=== PATIENT | male | born 1955 | race African-American/Black ===

== ENCOUNTER 2017-02-02 12:14 | Emergency (ER) | payer MEDICAID, OTHER ==
[~2017-02-02] VITALS: Ht 185.4 cm; Wt 102.1 kg
[2017-02-02 12:37] VITALS: BP 137/97
--- NOTE | 2017-02-02 12:48 | Emergency Room Report ---
History of Present Illness General Chief Complaint: Pain Source: Patient (Chelo Camargo) Present Illness HPI 61-year-old male presents to the emergency department complaining of approximately 2 weeks symptoms of right-sided nasal congestion, progressive onset right temporal headache with tenderness x2 days. Patient denies nausea vomiting patient does report intermittent blurry vision. Denies loss in vision, floaters, photophobia or denies eye pain. Patient reports history of sinusitis , HIV. Patient denies rhinorrhea, fevers, chills, neck pain or stiffness. Patient states that his viral load is undetectable he does not recall what his CD4 count is states that he has not been told he has aids his doctor. He denies trauma fall, in balance, dizziness. Denies CP, Palpitations, LOC, AMS, dizziness, Changes in Vision, Sensation, paresthesias, or a sudden severe headache. (Chelo Camargo) Allergies: Coded Allergies: No Known Allergies (Verified Allergy, Unknown, 11/26/07) Patient History Past Medical History: see triage record Past Surgical History: none Pertinent Family History: none Immunizations: UTD Reviewed Nursing Documentation: PMH: Agreed, PSxH: Agreed (Chelo Camargo) Nursing Documentation-PMH Past Medical History: No History, Except For Hx Cardiac Problems: No - HIV + Hx Seizures: Yes (Chelo Camargo) Review of Systems All Other Systems: negative except mentioned in HPI (Chelo Camargo) Physical Exam Vital Signs Date Time Temp Pulse Resp B/P (MAP) Pulse Ox O2 Delivery O2 Flow Rate FiO2 02/02/17 12:17 98.2 63 18 137/97 98 Room Air Sp02 EP Interpretation: reviewed, normal General Appearance: no apparent distress, alert, GCS 15, non-toxic Head: normocephalic, atraumatic Eyes: bilateral eye normal inspection, bilateral eye PERRL ENT: hearing grossly normal, normal pharynx, no angioedema, normal voice, TMs + canals normal, uvula midline, nasal congestion - right sided nasal congestion , and possible nasal polyp due to visualized boggy swelling. Neck: full range of motion, no meningismus, no bony tend, supple/symm/no masses Respiratory: chest non-tender, lungs clear, normal breath sounds, speaking full sentences Cardiovascular #1: regular rate, rhythm, normal capillary refill Musculoskeletal: back normal, gait/station normal, normal range of motion, tender - moderate right spiritism ttp, pulses are equal bilaterally in temporal area. Neurologic: alert, oriented x3, responsive, motor strength/tone normal, sensory intact, normal gait, speech normal, no pronator, other - negative whittington's, equal director of supply chain strength Psychiatric: judgement/insight normal, memory normal, mood/affect normal Skin: normal color, no rash - no rashes noted, no bruises, no erythema, warm/ dry, well hydrated Lymphatic: no adenopathy (Chelo Camargo) Medical Decision Making PA Attestation Dr. Sawyer is my supervising Physician whom patient management has been discussed with. (Chelo Camargo) Diagnostic Impression: Primary Impression: Ethmoid sinusitis Qualified Codes: J01.20 - Acute ethmoidal sinusitis, unspecified ER Course 61-year-old male presents to the emergency department complaining of approximately 2 weeks symptoms of right-sided nasal congestion, progressive onset right temporal headache with tenderness x2 days. Patient denies nausea vomiting patient does report intermittent blurry vision. Denies loss in vision, floaters, photophobia or denies eye pain. Patient reports history of sinusitis , HIV. Patient denies rhinorrhea, fevers, chills, neck pain or stiffness. Patient states that his viral load is undetectable he does not recall what his CD4 count is states that he has not been told he has aids his doctor. He denies trauma fall, in balance, dizziness. Denies CP, Palpitations, LOC, AMS, dizziness, Changes in Vision, Sensation, paresthesias, or a sudden severe headache. Ddx considered but are not limited to migraine, temporal arteritis, sinusitis, acute glaucoma, Vital signs: are WNL, pt. is afebrile H&PE are most consistent with migraine headache _VISUAL ACUITY: R: 20/70, L: 20/25, BOTH : 20/30 ORDERS: - CBC: WNL other than wbc's of 3.8 -ESR: 12 - WNL CT Head No Contrast: "No evidence of acute fracture, hemorrhage, or intracranial process, Evidence of right sided ethmoid sinus disease"-- Per: Official radiology report. ED INTERVENTIONS: -Benadryl IM -Tylenol PO -D/w pt. the results of imaging, and lab work, given CT shows ethmoid sinus disease, and ESR was WNL-- Temporal Arteritis is of low suspicion. Pt. is rx'd with ORAL ANTIBIOTICS Because symptoms have been greater than 10 days, Pt. is immunocompromised, and diagnosis is established with CT. DISCHARGE: At this time pt. is stable for d/c to home. Will provide printed patient care instructions, and any necessary prescriptions. Care plan and follow up instructions have been discussed with the patient prior to discharge. Labs Test 02/02/17 13:46 White Blood Count 3.8 K/UL (4.8-10.8) Red Blood Count 5.79 M/UL (4.70-6.10) Hemoglobin 16.3 G/DL (14.2-18.0) Hematocrit 51.8 % (42.0-52.0) Mean Corpuscular Volume 89 FL (80-99) Mean Corpuscular Hemoglobin 28.1 PG (27.0-31.0) Mean Corpuscular Hemoglobin Concent 31.4 G/DL (32.0-36.0) Red Cell Distribution Width 12.9 % (11.6-14.8) Platelet Count 207 K/UL (150-450) Mean Platelet Volume 7.9 FL (6.5-10.1) Neutrophils (%) (Auto) 54.9 % (45.0-75.0) Lymphocytes (%) (Auto) 30.3 % (20.0-45.0) Monocytes (%) (Auto) 11.6 % (1.0-10.0) Eosinophils (%) (Auto) 2.3 % (0.0-3.0) Basophils (%) (Auto) 0.9 % (0.0-2.0) Erythrocyte Sedimentation Rate 12 MM/HR (0-20) (Chelo Camargo P.A.) Last Vital Signs Date Time Temp Pulse Resp B/P (MAP) Pulse Ox O2 Delivery O2 Flow Rate FiO2 02/02/17 12:37 18 137/97 98 Room Air 02/02/17 12:17 98.2 63 (Chelo Camargo P.A.) Disposition: HOME, SELF-CARE Condition: Stable Scripts Cetirizine Hcl* (ZYRTEC*) 10 Mg Tablet 10 MG ORAL DAILY for 30 Days, #30 TAB 0 Refills Prov: Chelo Camargo 02/02/17 Amoxicillin/Potassium Clav 875-125* (AUGMENTIN 875-125 TABLET*) 1 Each Tablet 1 TAB ORAL TWICE A DAY for 10 Days, #20 TAB Prov: Chelo Camargo 02/02/17 Oxymetazoline Hcl* (AFRIN*) 15 Ml Mist 2 SPRAYS NASAL TWICE A DAY for 3 Days, #15 ML 0 Refills Prov: Chelo Camargo 02/02/17 Patient Instructions: Sinusitis, Adult Additional Instructions: Take medications as directed. Follow up with a [facility]EL[facility] via your Primary Care Physician within 48 HOURS ! Return sooner to ED if new symptoms occur, or current symptoms become worse. - Please note that this Emergency Department Report was dictated using [employer] Technologiescasting operator technology software, occasionally this can lead to erroneous entry secondary to interpretation by the dictation equipment. Chelo Camargo Feb 02, 2017 12:48 Jin Sawyer M.D. Feb 07, 2017 06:52
[2017-02-02] MEDS ORDERED: AFRIN15 ML NASAL (13:23)
[2017-02-02] MEDS ORDERED: PREDNISONE20 MG ORAL (13:23)
[2017-02-02 13:53] LABS: BASOPHILS % (AUTO) 0.9 % (0.0-2.0); EOSINOPHILS % (AUTO) 2.3 % (0.0-3.0); LYMPHOCYTES % (AUTO) 30.3 % (20.0-45.0); MEAN CORPUSCULAR HEMOGLOBIN 28.1 PG (27.0-31.0); MEAN CORPUSCULAR HGB CONC 31.4 G/DL (32.0-36.0); MEAN CORPUSCULAR VOLUME 89 FL (80-99); MEAN PLATELET VOLUME 7.9 FL (6.5-10.1); MONOCYTES % (AUTO) 11.6 % (1.0-10.0); NEUTROPHILS % (AUTO) 54.9 % (45.0-75.0); PLATELET COUNT 207 K/UL (150-450); RED BLOOD COUNT 5.79 M/UL (4.70-6.10); RED CELL DISTRIBUTION WIDTH 12.9 % (11.6-14.8); WHITE BLOOD COUNT 3.8 K/UL (4.8-10.8)
[2017-02-02] MEDS ORDERED: DiphenhydrAMINE 50mg/ml Inj IM ONE (14:45)
--- NOTE | 2017-02-02 15:27 | Diagnostic Imaging Report ---
Indication: Right-sided temporal pain Technique: Continuous helical CT scanning of the head was performed without intravenous contrast material. Axial and coronal 5 mm sections were generated. Radiation dose was minimized using automated exposure control . The mastoids are clear Dose: Total Dose Length Product - DLP [address] Dose Index - CTDIvol(s) 70.38 mGy. Comparison: 11/26/2007 Findings: The ventricular system is normal in size and configuration. There is no shift of midline structures. No abnormal extra-axial fluid collections are noted. There is no evidence of intracerebral bleeding. No other abnormal high or low density areas are noted within the brain. There is bilateral sphenoid, right-sided ethmoid sinus disease. The calvarium is intact Impression: Normal CT scan of the head without contrast material. Incidental finding of sinus disease The CT scanner at [facility] is accredited by the [employer] and the scans are performed using protocols designed to limit radiation exposure to as low as reasonably achievable to attain images of sufficient resolution adequate for diagnostic evaluation.
[2017-02-02] MEDS ORDERED: ZYRTEC10 MG ORAL (15:53)
[2017-02-02] MEDS ORDERED: AUGMENTIN 875-1 EAC1 ORAL (15:53)
[2017-02-02 15:55] VITALS: BP 154/106
== END 2017-02-02 15:55 | disposition home or self-care (01) ==
LOC: EMR 13:00
DX: J32.2 Chronic ethmoidal sinusitis (principal); Z86.69 Personal history of other diseases of the nervous system and sense organs; R09.81 Nasal congestion; R51 Headache
CPT/HCPCS: 36415; 70450; 85025; 85651; 96372; 99284; J1200

== ENCOUNTER 2017-06-05 11:54 | Emergency (ER) | payer OTHER ==
[~2017-06-05] VITALS: Ht 185.4 cm; Wt 99.8 kg
[~2017-06-05 11:54] MED LIST: AFRIN15 ML NASAL; AUGMENTIN 875-1 EAC1 ORAL; PREDNISONE20 MG ORAL; ZYRTEC10 MG ORAL
[2017-06-05] MEDS ORDERED: Albuterol ud Inhalation HHN ONE (12:30)
[2017-06-05] MEDS ORDERED: Ipratropium 0.02% Inh Soln 2.5ml UD HHN ONE (12:30)
[2017-06-05] MEDS ORDERED: PROMETHAZINE-C118 M1 ORAL (13:22)
[2017-06-05] MEDS ORDERED: PROAIR HFA8.5 GM INH (13:22)
[2017-06-05] MEDS ORDERED: IBUPROFEN600 MG ORAL (13:22)
[2017-06-05 13:35] VITALS: BP 131/70
--- NOTE | 2017-06-05 21:24 | Emergency Room Report ---
History of Present Illness General Chief Complaint: Flu Like Symptoms Source: Patient Present Illness HPI The patient is a 62-year-old male with a history of HIV presenting for cough for the past 2 weeks. Patient has unknown CD4 count. He denies any known sick contacts or recent travel. Pain is productive with yellow sputum. He denies other symptoms including hemoptysis, fever, chills, shortness of breath, rash, myalgia, fatigue Allergies: Coded Allergies: No Known Allergies (Verified Allergy, Unknown, 11/26/07) Patient History Past Medical History: see triage record Pertinent Family History: none Reviewed Nursing Documentation: PMH: Agreed, PSxH: Agreed Nursing Documentation-PMH Hx Cardiac Problems: No - HIV + Hx Seizures: Yes Review of Systems All Other Systems: negative except mentioned in HPI Physical Exam Vital Signs Date Time Temp Pulse Resp B/P (MAP) Pulse Ox O2 Delivery O2 Flow Rate FiO2 06/05/17 11:59 98.1 90 20 124/75 99 Room Air 06/05/17 12:45 21 Sp02 EP Interpretation: reviewed, normal General Appearance: no apparent distress, alert, GCS 15, non-toxic Head: normocephalic, atraumatic Eyes: bilateral eye normal inspection, bilateral eye PERRL ENT: hearing grossly normal, normal pharynx, no angioedema, normal voice Neck: full range of motion, supple/symm/no masses Respiratory: chest non-tender, no accessory muscle use, decreased breath sounds , speaking full sentences Cardiovascular #1: regular rate, rhythm, no edema Musculoskeletal: back normal, gait/station normal, normal range of motion, non- tender Neurologic: alert, oriented x3, responsive, motor strength/tone normal, sensory intact, speech normal Psychiatric: judgement/insight normal, memory normal, mood/affect normal, no suicidal/homicidal ideation Skin: normal color, no rash, warm/dry, well hydrated Medical Decision Making PA Attestation Dr. Barclay is my supervising physician. Patient management was discussed with my supervising physician Diagnostic Impression: Primary Impression: Cough ER Course The patient is a 62-year-old male with a history of HIV presenting for cough for the past 2 weeks. Differential diagnosis include but not limited to pharyngitis, sinusitis, AOM, bronchitis, PNA PE: afebrile. No tachypnea. No apparent distress. No TTP over maxillary or frontal sinuses. Lungs: decreased breath sounds. No accessory muscle use. No resp distress Heart: RRR, no abnormal heart sounds Ears: external auditory canal clear. Non erythematous. Bilat TM intact. Cone of light present bilat. No bulging of TM. No serous fluid seen. no nasal D/C No cervical lymphad No tonsillar exudate. Uvula midline.Oropharynx non erythematous Chest x-ray unremarkable The patient is given a breathing treatment and feels better. Lung sounds have improved The patient will be discharged home with a prescription for albuterol, cough medication, and motrin He needs to see follow-up for HIV assessment and treatment [place]. ER precautions given Chest X-Ray Diagnostic Results Chest X-Ray Diagnostic Results : Chest X-Ray Ordered: Yes # of Views/Limited/Complete: 1 View Indication: Other - cough PA Xray: Interpretation reviewed, by supervising MD, and agrees with findings. Interpretation: no consolidation, no effusion, no pneumothorax Impression: No acute disease Electronically Signed by: Kris Avalos PA-C Last Vital Signs Date Time Temp Pulse Resp B/P (MAP) Pulse Ox O2 Delivery O2 Flow Rate FiO2 06/05/17 13:35 98.1 88 22 131/70 99 Room Air Status: improved Disposition: HOME, SELF-CARE Condition: Improved Scripts Albuterol Sulfate* (PROAIR HFA*) 8.5 Gm Hfa.aer.ad 2 PUFFS INH Q6H, #8.5 GM 0 Refills Prov: TERZIAN,KRIS P.A. 06/05/17 Ibuprofen* (MOTRIN*) 600 Mg Tablet 600 MG ORAL Q8H Y for For Pain, #30 TAB 0 Refills Prov: TERZIAN,KRIS P.A. 06/05/17 Codeine/Promethazine Hcl* (PROMETHAZINE-CODEINE SYRUP*) 118 Ml Syrup 5 ML ORAL Q6H Y for For Cough, #118 ML 0 Refills Prov: TERZIAN,KRIS P.A. 06/05/17 Referrals: [facility],REFERRING (PCP) Patient Instructions: Cough, Adult Additional Instructions: I discussed my findings with the patient. All questions and concerns have been answered. Treatment and medication compliance have been addressed. I advised the patient that they need to follow up with PMD in 3-5 days. Return to ED if pain remains or worsens, cough worsens or remains, you notice blood in your sputum, you notice wheezing, you experience a fever, or if needed for any reason. Patient verbalized understanding of discharge instructions. KRIS AVALOS Jun 05, 2017 21:24
--- NOTE | 2017-06-06 10:53 | Diagnostic Imaging Report ---
Indication: Cough Comparison: 11/26/2007 A single view chest radiograph was obtained. Findings: Cardiomediastinal appearance is within normal limits for age. Pulmonary vascularity is appropriate. The diaphragmatic contour is smooth and costophrenic angles are sharp. No pleural effusions are identified. The bones are unremarkable. Impression: No acute findings
== END 2017-06-05 13:35 | disposition home or self-care (01) ==
LOC: EMR 12:10
DX: R05 Cough (principal); R06.02 Shortness of breath
CPT/HCPCS: 71045; 94640; 94664; 99284

== ENCOUNTER 2017-09-04 09:39 | Emergency (ER) | payer OTHER ==
[~2017-09-04] VITALS: Ht 185.4 cm; Wt 104.3 kg
[~2017-09-04 09:39] MED LIST changes: +IBUPROFEN600 MG ORAL; +PROAIR HFA8.5 GM INH; +PROMETHAZINE-C118 M1 ORAL
[2017-09-04] MEDS ORDERED: FLUCONAZOLE100 MG ORAL (09:42)
[2017-09-04] MEDS ORDERED: CYCLOBENZAPRINE10 MG ORAL (09:42)
[2017-09-04] MEDS ORDERED: LEVETIRACETAM500 MG ORAL (09:42)
[2017-09-04] MEDS ORDERED: TERAZOSIN HCL1 MG ORAL (09:42)
[2017-09-04] MEDS ORDERED: GABAPENTIN300 MG ORAL (09:42)
[2017-09-04] MEDS ORDERED: BENAZEPRIL HCL40 MG ORAL (09:42)
[2017-09-04] MEDS ORDERED: DiphenhydrAMINE 50mg/ml Inj IVP ONE (09:45)
[2017-09-04 10:07] LABS: HEMATOCRIT 49.6 % (42.0-52.0); HEMOGLOBIN 15.6 G/DL (14.2-18.0); MEAN CORPUSCULAR VOLUME 88 FL (80-99); PLATELET COUNT 178 K/UL (150-450); RED BLOOD COUNT 5.66 M/UL (4.70-6.10); RED CELL DISTRIBUTION WIDTH 12.9 % (11.6-14.8); WHITE BLOOD COUNT 3.1 K/UL (4.8-10.8)
--- NOTE | 2017-09-04 10:07 | Emergency Room Report ---
History of Present Illness General Chief Complaint: Pain Source: Patient Present Illness HPI The patient presents with involuntary contractions of his right face this morning. This occurred when he had severe pain. He's been having pain on that side of his face for months. He's had a CT done in the past. He has chronic pain and is on gabapentin. They claim that he also has sinus problems. Denies any fevers. The pain is rated 8/10, R side of face from ear to nose and radiates to jaw. Family state that some of this pain is related to chronic sinusitis. When queried the patient denies any new medications but is on a medication for nausea. He is uncertain as to what this medicine is called. He has chronic right heel pain. He denies diabetes. He has a h/o seizures and is on Keppra. During this episode he did not loose consciousness. H/O bladder cancer. 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 Allergies: Coded Allergies: No Known Allergies (Verified , 11/26/07) Patient History Past Medical History: see triage record Social History Narrative with family Reviewed Nursing Documentation: PMH: Agreed; PSxH: Agreed Nursing Documentation-PMH Hx Hypertension: Yes Hx Seizures: Yes Review of Systems All Other Systems: negative except mentioned in HPI Physical Exam Vital Signs Date Time Temp Pulse Resp B/P (MAP) Pulse Ox O2 Delivery O2 Flow Rate FiO2 09/04/17 09:31 97.8 80 18 125/93 96 Room Air 97.9 Sp02 EP Interpretation: reviewed, normal General Appearance: well appearing, no apparent distress, GCS 15 Head: normocephalic Eyes: bilateral eye normal inspection, bilateral eye PERRL, bilateral eye EOMI ENT: moist mucus membranes, other - Cerumen bilateral, no pinna tendernes Neck: full range of motion, supple Respiratory: lungs clear, normal breath sounds Cardiovascular #1: regular rate, rhythm Cardiovascular #2: 2+ radial (R) Gastrointestinal: normal inspection, normal bowel sounds, non tender, no mass, non-distended Musculoskeletal: back normal, gait/station normal, normal range of motion Neurologic: alert, oriented x3, instrument specialist III-XII nml as tested, motor strength/tone normal, DTRs symmetric, sensory intact, cerebellar normal, speech normal Psychiatric: anxious Skin: normal inspection, warm/dry Medical Decision Making Diagnostic Impression: Primary Impression: Extrapyramidal reaction Additional Impression: Chronic pain Qualified Codes: G89.29 - Other chronic pain ER Course The patient presents with involuntary facial movements. Differential includes medication side effect, muscle spasm due to pain, partial complex seizure amongst others. His neurologic exam is normal aside from being hypersensitive to pain, and therefore, CT not indicated at this time. He'll be evaluated with EKG, chest x-ray and labs. The patient will be treated with Benadryl and aspirin. EKG no injury. CXR normal. Labs with renal insufficiency (had been worse in past). Tox + for THC and opiates. Patient improved with treatment. Apparently, the anit nausea medicine was Compazine which makes dystonic reaction most likely (as opposed to partial complex seizure). No more involuntary facial or other spasms after Benadryl. Discussed results with family and need for close follow up as well as continued use of Cogentin. Patient stable for outpatient observation and treatment. Laboratory Tests Test 09/04/17 09:50 09/04/17 10:45 White Blood Count 3.1 K/UL (4.8-10.8) L Red Blood Count 5.66 M/UL (4.70-6.10) Hemoglobin 15.6 G/DL (14.2-18.0) Hematocrit 49.6 % (42.0-52.0) Mean Corpuscular Volume 88 FL (80-99) Mean Corpuscular Hemoglobin 27.5 PG (27.0-31.0) Mean Corpuscular Hemoglobin Concent 31.4 G/DL (32.0-36.0) L Red Cell Distribution Width 12.9 % (11.6-14.8) Platelet Count 178 K/UL (150-450) Mean Platelet Volume 7.3 FL (6.5-10.1) Neutrophils (%) (Auto) % (45.0-75.0) Lymphocytes (%) (Auto) % (20.0-45.0) Monocytes (%) (Auto) % (1.0-10.0) Eosinophils (%) (Auto) % (0.0-3.0) Basophils (%) (Auto) % (0.0-2.0) Differential Total Cells Counted 100 Neutrophils % (Manual) 65 % (45-75) Lymphocytes % (Manual) 21 % (20-45) Monocytes % (Manual) 8 % (1-10) Eosinophils % (Manual) 5 % (0-3) H Basophils % (Manual) 1 % (0-2) Band Neutrophils 0 % (0-8) Platelet Estimate Adequate Platelet Morphology Normal Red Blood Cell Morphology Normal Prothrombin Time 10.4 SEC (9.30-11.50) Prothrombin Time INR 1.0 (0.9-1.1) PTT 25 SEC (23-33) Sodium Level 139 MMOL/L (136-145) Potassium Level 3.7 MMOL/L (3.5-5.1) Chloride Level 106 MMOL/L (98-107) Carbon Dioxide Level 25 MMOL/L (21-32) Anion Gap 8 mmol/L (5-15) Blood Urea Nitrogen 19 mg/dL (7-18) H Creatinine 1.6 MG/DL (0.55-1.30) H Estimate Glomerular Filtration Rate 53.2 mL/min (>60) Glucose Level 103 MG/DL (74-106) Calcium Level 8.9 MG/DL (8.5-10.1) Total Bilirubin 0.4 MG/DL (0.2-1.0) Aspartate Amino Transferase (AST) 22 U/L (15-37) Alanine Aminotransferase (ALT) 22 U/L (12-78) Alkaline Phosphatase 68 U/L (46-116) Total Creatine Kinase 237 U/L (26-308) Troponin I 0.015 ng/mL (0.000-0.056) Pro-B-Type Natriuretic Peptide 14 pg/mL (0-125) Total Protein 7.9 G/DL (6.4-8.2) Albumin 3.7 G/DL (3.4-5.0) Globulin 4.2 g/dL Albumin/Globulin Ratio 0.9 (1.0-2.7) L Urine Color Pale yellow Urine Appearance Clear Urine pH 6 (4.5-8.0) Urine Specific [place] 1.010 (1.005-1.035) Urine Protein 1+ (NEGATIVE) H Urine Glucose (UA) Negative (NEGATIVE) Urine Ketones Negative (NEGATIVE) Urine Occult Blood Negative (NEGATIVE) Urine Nitrite Negative (NEGATIVE) Urine Bilirubin Negative (NEGATIVE) Urine Urobilinogen Normal MG/DL (0.0-1.0) Urine Leukocyte Esterase 1+ (NEGATIVE) H Urine RBC 0 /HPF (0 - 0) Urine WBC 0-2 /HPF (0 - 0) Urine Squamous Epithelial Cells Occasional /LPF Urine Bacteria Occasional /HPF (NONE) Urine Opiates Screen Positive (NEGATIVE) H Urine Barbiturates Screen Negative (NEGATIVE) Phencyclidine (PCP) Screen Negative (NEGATIVE) Urine Amphetamines Screen Negative (NEGATIVE) Urine Benzodiazepines Screen Negative (NEGATIVE) Urine Cocaine Screen Negative (NEGATIVE) Urine Marijuana (THC) Screen Positive (NEGATIVE) H EKG Diagnostic Results Rate: normal Rhythm: NSR Rhythm Strip Diag. Results EP Interpretation: yes Rhythm: NSR, no PVC's, no ectopy Chest X-Ray Diagnostic Results Chest X-Ray Diagnostic Results : Chest X-Ray Ordered: Yes # of Views/Limited/Complete: 1 View Indication: Other EP Interpretation: Yes Interpretation: no consolidation, no effusion, no pneumothorax, no acute cardiopulmonary disease Impression: No acute disease Electronically Signed by: Laz Mcgowan MD Last Vital Signs Date Time Temp Pulse Resp B/P (MAP) Pulse Ox O2 Delivery O2 Flow Rate FiO2 09/04/17 12:03 97.9 78 18 122/89 96 Room Air 97.9 Status: improved Disposition: HOME, SELF-CARE Condition: Improved Scripts Benztropine Mesylate* (COGENTIN*) 0.5 Mg Tablet 0.5 MG PO BID PRN for muscle spasms, #10 TAB Prov: Laz Mcgowan M.D. 09/04/17 Laz Mcgowan M.D. September 04, 2017 10:07
[2017-09-04 10:10] VITALS: BP 125/93
[2017-09-04 10:17] LABS: ANION GAP 8 mmol/L (5-15); BLOOD UREA NITROGEN 19 mg/dL (7-18); CALCIUM 8.9 MG/DL (8.5-10.1); CARBON DIOXIDE 25 MMOL/L (21-32); CHLORIDE 106 MMOL/L (98-107); CREATININE 1.6 MG/DL (0.55-1.30); POTASSIUM 3.7 MMOL/L (3.5-5.1); SODIUM 139 MMOL/L (136-145)
--- NOTE | 2017-09-04 10:27 | Diagnostic Imaging Report ---
INDICATION: Headache COMPARISON: Chest x-ray dated to 06/05/17 FINDINGS: Single frontal view demonstrates a normal cardiomediastinal silhouette. The lungs are clear. No pleural effusions. The visualized osseous structures are within normal limits. IMPRESSION: No acute cardiopulmonary disease.
[2017-09-04 10:28] LABS: ALANINE AMINOTRANSFERASE 22 U/L (12-78); ALBUMIN 3.7 G/DL (3.4-5.0); ALBUMIN/GLOBULIN RATIO 0.9 (1.0-2.7); ALKALINE PHOSPHATASE 68 U/L (46-116); ASPARTATE AMINO TRANSFERASE 22 U/L (15-37); BILIRUBIN,TOTAL 0.4 MG/DL (0.2-1.0); CREATINE KINASE 237 U/L (26-308)
[2017-09-04 10:59] LABS: APPEARANCE,URINE CLEAR; BILIRUBIN, URINE NEGATIVE (NEGATIVE); COLOR,URINE PALE YELLOW; GLUCOSE, URINE (UA) NEGATIVE (NEGATIVE); KETONES,URINE NEGATIVE (NEGATIVE); LEUKOCYTE ESTERASE ,URINE 1+ (NEGATIVE); NITRITE,URINE NEGATIVE (NEGATIVE); PH,URINE 6 (4.5-8.0); PROTEIN,URINE 1+ (NEGATIVE); UROBILINOGEN,URINE NORMAL MG/DL (0.0-1.0)
[2017-09-04] MEDS ORDERED: BENZTROPINE ME0.5 MG PO (11:21)
[2017-09-04 12:02] VITALS: BP 122/89
[2017-09-04 12:03] VITALS: BP 122/89
--- NOTE | 2017-09-05 18:53 | Cardiology Report ---
APPROVED REPORT EKG Measurement Heart [id number] Normal sinus rhythm Normal ECG
== END 2017-09-04 12:03 | disposition home or self-care (01) ==
LOC: EDBD 09:39 → EMR 11:15
DX: R25.8 Other abnormal involuntary movements (principal); G89.29 Other chronic pain; G40.909 Epilepsy, unspecified, not intractable, without status epilepticus; I10 Essential (primary) hypertension; Z79.899 Other long term (current) drug therapy; Z85.51 Personal history of malignant neoplasm of bladder
CPT/HCPCS: 36415; 71045; 80053; 80307; 81003; 82550; 83880; 84484; 85007; 85025; 85610; 85730; 93005; 96374; 99283; J1200

== ENCOUNTER 2017-11-25 14:55 | Emergency (ER) | payer OTHER ==
[~2017-11-25] VITALS: Ht 182.9 cm; Wt 90.7 kg
[~2017-11-25 14:55] MED LIST changes: +BENAZEPRIL HCL40 MG ORAL; +BENZTROPINE ME0.5 MG PO; +CYCLOBENZAPRINE10 MG ORAL; +FLUCONAZOLE100 MG ORAL; +GABAPENTIN300 MG ORAL; +LEVETIRACETAM500 MG ORAL; +TERAZOSIN HCL1 MG ORAL
[2017-11-25 15:11] VITALS: BP 151/104
--- NOTE | 2017-11-25 15:20 | Emergency Room Report ---
History of Present Illness General Chief Complaint: Syncope Source: Patient Present Illness HPI Patient is 62-year-old male brought in by private vehicle after reported syncopal episode. Patient reportedly had prior history of HIV as well as hypertension. The patient was noted to have the syncopal episode. He reports having some increased right leg pain for approximately 2 weeks. He states is associated with some numbness. Allergies: Coded Allergies: No Known Allergies (Verified , 11/26/07) Patient History Past Medical History: see triage record Reviewed Nursing Documentation: PMH: Agreed; PSxH: Agreed Nursing Documentation-PMH Hx Cardiac Problems: No - HIV + Hx Hypertension: Yes Hx Seizures: Yes Review of Systems All Other Systems: negative except mentioned in HPI Physical Exam Vital Signs Date Time Temp Pulse Resp B/P (MAP) Pulse Ox O2 Delivery O2 Flow Rate FiO2 11/25/17 15:05 99.2 80 13 150/104 100 Room Air 99.1 Sp02 EP Interpretation: reviewed, normal General Appearance: normal inspection, well appearing, no apparent distress, alert, GCS 15, non-toxic Head: atraumatic ENT: normal ENT inspection, hearing grossly normal, normal voice Neck: normal inspection, full range of motion, supple, no bony tend Respiratory: normal inspection, lungs clear, normal breath sounds, no respiratory distress, no retraction, no wheezing Cardiovascular #1: regular rate, rhythm, no edema Gastrointestinal: normal inspection, normal bowel sounds, non tender, soft, no guarding, no hernia Genitourinary: no CVA tenderness Musculoskeletal: normal inspection, back normal, normal range of motion Neurologic: normal inspection, alert, oriented x3, responsive, car pusher III-XII nml as tested, motor strength/tone normal, speech normal Psychiatric: normal inspection, judgement/insight normal, mood/affect normal Skin: normal inspection, normal color, no rash Medical Decision Making Diagnostic Impression: Primary Impression: Syncope Additional Impressions: Dehydration Renal insufficiency HIV (human immunodeficiency virus infection) EKG Diagnostic Results Rate: normal - 71 Rhythm: NSR ST Segments: no acute changes Last Vital Signs Date Time Temp Pulse Resp B/P (MAP) Pulse Ox O2 Delivery O2 Flow Rate FiO2 11/25/17 15:11 98.4 78 30 151/104 100 Room Air 98.4 Nicko Ho MD Nov 25, 2017 15:20
[2017-11-25 15:35] LABS: EOSINOPHILS % (AUTO) 1.2 % (0.0-3.0); HEMATOCRIT 47.7 % (42.0-52.0); HEMOGLOBIN 16.2 G/DL (14.2-18.0); LYMPHOCYTES % (AUTO) 30.6 % (20.0-45.0); MEAN CORPUSCULAR VOLUME 87 FL (80-99); MONOCYTES % (AUTO) 9.2 % (1.0-10.0); PLATELET COUNT 172 K/UL (150-450); RED BLOOD COUNT 5.47 M/UL (4.70-6.10); RED CELL DISTRIBUTION WIDTH 12.5 % (11.6-14.8); WHITE BLOOD COUNT 3.5 K/UL (4.8-10.8)
[2017-11-25 16:11] LABS: APPEARANCE,URINE CLEAR; BILIRUBIN, URINE NEGATIVE (NEGATIVE); GLUCOSE, URINE (UA) NEGATIVE (NEGATIVE); KETONES,URINE 1+ (NEGATIVE); LEUKOCYTE ESTERASE ,URINE 1+ (NEGATIVE); NITRITE,URINE NEGATIVE (NEGATIVE); PH,URINE 6 (4.5-8.0); PROTEIN,URINE 2+ (NEGATIVE); UROBILINOGEN,URINE 4 MG/DL (0.0-1.0)
[2017-11-25 16:12] LABS: COLOR,URINE YELLOW
[2017-11-25] MEDS ORDERED: Morphine Sulfate 4mg/ml Inj (IV USE ONLY) IVP ONE (16:15)
[2017-11-25] MEDS ORDERED: Metoclopramide 10mg/2ml Inj IVP ONE (16:15)
[2017-11-25] MEDS ORDERED: Sodium Chloride 500ML 500 ML IV ONE ×2 (16:15→18:15)
--- NOTE | 2017-11-25 16:50 | Diagnostic Imaging Report ---
Indication: Head pain Technique: Continuous helical CT scanning of the head was performed without intravenous contrast material. Axial and coronal 5 mm sections were generated. Radiation dose was minimized using automated exposure control Dose: Total Dose Length Product - DLP 1498.[address] Dose Index - CTDIvol(s) 70.38 mGy. Comparison: none Findings: The ventricular system is normal in size and configuration. There is no shift of midline structures. No abnormal extra-axial fluid collections are noted. There is no evidence of intracerebral bleeding. No other abnormal high or low density areas are noted within the brain. Forbes-white differentiation is normal. Visualized orbits are unremarkable. There is sphenoid sinus disease. The mastoids are clear. The calvarium is intact. Impression: Normal CT scan of the head without contrast material. The CT scanner at [facility] is accredited by the [employer] and the scans are performed using protocols designed to limit radiation exposure to as low as reasonably achievable to attain images of sufficient resolution adequate for diagnostic evaluation.
[2017-11-25 17:38] LABS: ANION GAP 17 mmol/L (5-15); BLOOD UREA NITROGEN 17 mg/dL (7-18); CALCIUM 9.1 MG/DL (8.5-10.1); CARBON DIOXIDE 19 MMOL/L (21-32); CHLORIDE 104 MMOL/L (98-107); CREATININE 1.7 MG/DL (0.55-1.30); POTASSIUM 3.6 MMOL/L (3.5-5.1); SODIUM 140 MMOL/L (136-145)
[2017-11-25 17:43] LABS: ALANINE AMINOTRANSFERASE 23 U/L (12-78); ALBUMIN 4.1 G/DL (3.4-5.0); ALBUMIN/GLOBULIN RATIO 0.9 (1.0-2.7); ALKALINE PHOSPHATASE 67 U/L (46-116); ASPARTATE AMINO TRANSFERASE 27 U/L (15-37); BILIRUBIN,TOTAL 0.5 MG/DL (0.2-1.0)
[2017-11-25 18:48] VITALS: BP 141/95
[2017-11-25 18:53] VITALS: BP 141/95
--- NOTE | 2017-11-27 14:23 | Cardiology Report ---
APPROVED REPORT EKG Measurement Heart [id number] Normal sinus rhythm Low voltage QRS Borderline ECG
== END 2017-11-25 18:53 | disposition home or self-care (01) ==
LOC: EMR 16:23
DX: R55 Syncope and collapse (principal); E86.0 Dehydration; N28.9 Disorder of kidney and ureter, unspecified; I10 Essential (primary) hypertension
CPT/HCPCS: 36415; 70450; 80053; 80329; 81001; 83880; 84443; 84484; 85025; 85379; 85610; 85730; 93005; 96374; 96375; 99284; J2270; J2765; J7040

== ENCOUNTER 2018-02-17 14:39 | Emergency (ER) | payer OTHER ==
[~2018-02-17] VITALS: Ht 185.4 cm; Wt 102.1 kg
[2018-02-17 14:53] VITALS: BP 164/99
--- NOTE | 2018-02-17 16:35 | Emergency Room Report ---
History of Present Illness General Chief Complaint: Upper Extremity Injury Source: Patient, Medical Record Present Illness HPI 62-year-old male presents to the emergency department complaining of 10 out of 10 in severity spasming and tightness to the right side of his neck since this morning. Patient reports that he was leaning on a pillow on the right side in his bed this morning and when he went to move he had sharp pain and his shoulder began spasming. Patient denies trauma or fall. Denies pain radiation down into the right upper extremity denies weakness, paresthesias or loss of gross motor movements. Patient reports history of muscle spasms in the past and states that he is prescribed Flexeril. Patient denies headache, dizziness, changes in vision or changes in hearing. Patient denies recent chiropractic work, fevers or chills. Denies previous neck injury. He denies bony tenderness. Denies CP or palpitations. reports hx of HTN and HIV. Allergies: Coded Allergies: No Known Allergies (Verified , 11/26/07) Patient History Past Medical History: see triage record, HTN, HIV Past Surgical History: none Pertinent Family History: none Reviewed Nursing Documentation: PMH: Agreed; PSxH: Agreed Nursing Documentation-PMH Past Medical History: No History, Except For Hx Cardiac Problems: No - HIV+ Hx Hypertension: Yes Hx Cancer: Yes - Bladder CA Hx Seizures: Yes Review of Systems All Other Systems: negative except mentioned in HPI Physical Exam Vital Signs Date Time Temp Pulse Resp B/P (MAP) Pulse Ox O2 Delivery O2 Flow Rate FiO2 02/17/18 14:49 98.1 68 18 164/99 97 Room Air Sp02 EP Interpretation: reviewed, normal General Appearance: alert, GCS 15, non-toxic, mild distress Head: normocephalic, atraumatic Eyes: bilateral eye normal inspection, bilateral eye PERRL ENT: hearing grossly normal, normal voice Neck: full range of motion, no bony tend, tender lateral - right lateral trapezius ttp, other - FROM with pain Respiratory: lungs clear, normal breath sounds, speaking full sentences Cardiovascular #1: regular rate, rhythm, normal capillary refill, other - no bruitis Cardiovascular #2: 2+ radial (R), 2+ radial (L) Musculoskeletal: back normal, gait/station normal, normal range of motion, tender - TTP to the lateral right neck primarily in right trapezius Neurologic: alert, oriented x3, responsive, motor strength/tone normal, sensory intact, normal gait, speech normal, other - equal is analyst strength. NVI, grossly normal Psychiatric: judgement/insight normal Skin: normal color, no rash, warm/dry, well hydrated Lymphatic: no adenopathy Medical Decision Making PA Attestation Dr. Ho is my supervising Physician whom patient management has been discussed with. Diagnostic Impression: Primary Impression: Neck muscle spasm Additional Impression: Acute muscle stiffness of neck ER Course 62-year-old male presents to the emergency department complaining of 10 out of 10 in severity spasming and tightness to the right side of his neck since this morning. Patient reports that he was leaning on a pillow on the right side in his bed this morning and when he went to move he had sharp pain and his shoulder began spasming. Patient denies trauma or fall. Denies pain radiation down into the right upper extremity denies weakness, paresthesias or loss of gross motor movements. Patient reports history of muscle spasms in the past and states that he is prescribed Flexeril. Patient denies headache, dizziness, changes in vision or changes in hearing. Patient denies recent chiropractic work, fevers or chills. Denies previous neck injury. He denies bony tenderness. Denies CP or palpitations. reports hx of HTN and HIV. Ddx considered but are not limited to Fracture, dislocation, contusion, Sprain/ Strain/Spasm, Epidural abscess, Neoplastic mets. Vital signs: are WNL, pt. is afebrile H&PE are most consistent with musculoskeletal injury will perform imaging to r/ o fractures/dislocations. ORDERS: - X-ray no indicated at this time as pt. not having bony tenderness. ED INTERVENTIONS: - Soma PO -Lidoderm Patch TP -Motrin PO - Upon re-evaluation pt. reports pain has had significant improvement, still reports some tightness but to a lesser degree and rates 4/10 in severity. DISCHARGE: At this time pt. is stable for d/c to home. Will provide printed patient care instructions, and any necessary prescriptions. Care plan and follow up instructions have been discussed with the patient prior to discharge. Last Vital Signs Date Time Temp Pulse Resp B/P (MAP) Pulse Ox O2 Delivery O2 Flow Rate FiO2 02/17/18 16:06 98.1 10/26/18 14:53 68 18 164/99 97 Room Air Disposition: HOME, SELF-CARE Condition: Stable Scripts Methocarbamol* (ROBAXIN*) 500 Mg Tablet 1000 MG PO TID, #42 TAB 0 Refills Prov: Chelo Camargo 02/17/18 Lidocaine (Lidoderm) 1 Each Adh..patch 1 PATCH TOPIC DAILY, #30 PATCH 0 Refills Patch(es) may remain in place for up to 12 hours in any 24-hour period. Prov: Chelo Camargo 02/17/18 Ibuprofen* (MOTRIN*) 600 Mg Tablet 600 MG ORAL THREE TIMES A DAY, #20 TAB 0 Refills Prov: Chelo Camargo 02/17/18 Referrals: [facility],REFERRING (PCP) Patient Instructions: Muscle Cramps and Spasms, [id number], Muscle Pain, Adult Additional Instructions: Take medications as directed. Follow up with a Primary Care Provider in 3-5 days, even if your symptoms have resolved. --Please review list of primary care clinics, if you do not already have a primary care provider Return sooner to ED if new symptoms occur, or current symptoms become worse. Do not drink alcohol, drive, or operate heavy machinery while taking Robaxin ( Muscle Relaxers) as this may cause drowsiness. - Please note that this Emergency Department Report was dictated using [employer] processor technology software, occasionally this can lead to erroneous entry secondary to interpretation by the dictation equipment. Chelo Camargo Feb 17, 2018 16:35
[2018-02-17] MEDS ORDERED: DiphenhydrAMINE 25mg/10ml Elixir ORAL ONE (16:45)
[2018-02-17] MEDS ORDERED: LIDODERM700 M1 TOPIC (17:12)
[2018-02-17] MEDS ORDERED: ROBAXIN500 MG PO (17:12)
[2018-02-17] MEDS ORDERED: IBUPROFEN600 MG ORAL (17:12)
[2018-02-17 17:24] VITALS: BP 164/99
== END 2018-02-17 17:25 | disposition home or self-care (01) ==
LOC: EMR 15:29
DX: M62.838 Other muscle spasm (principal); M43.6 Torticollis; I10 Essential (primary) hypertension; Z85.51 Personal history of malignant neoplasm of bladder
CPT/HCPCS: 99283

== ENCOUNTER 2019-02-22 07:19 | Emergency (ER) | payer OTHER ==
[~2019-02-22] VITALS: Ht 185.4 cm; Wt 99.8 kg
[~2019-02-22 07:19] MED LIST changes: +LIDODERM700 M1 TOPIC; +ROBAXIN500 MG PO
[2019-02-22 07:35] VITALS: BP 132/93
--- NOTE | 2019-02-22 07:35 | NUR ---
ED Nurse Note: Patient walked in to ER due to sinus pain and blurry vision ongoing for several months. Patient states he tried sinus medications without relief of symtpoms. Patient denies SOB or chest pain. Placed the patient on monitor technician. VSS.
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
[2019-02-22] MEDS ORDERED: TYLENOL COLD M1 EAC3 PO (07:55)
--- NOTE | 2019-02-22 08:05 | NUR ---
ED Nurse Note: Prescription sent to pharmacy electronically. instruction given to the patient.
--- NOTE | 2019-02-22 08:06 | NUR ---
ER DISCHARGE NOTE: Patient is cleared to be discharged per ERMD, pt is aox4, on room air, with stable vital signs. pt was given dc and prescription instructions, pt was able to verbalize understanding, pt id band removed. pt is able to ambulate with steady gait. pt took all belongings.
[2019-02-22 08:07] VITALS: BP 121/80
== END 2019-02-22 08:06 | disposition home or self-care (01) ==
LOC: EMR 07:45
DX: J32.9 Chronic sinusitis, unspecified (principal); I10 Essential (primary) hypertension; E11.9 Type 2 diabetes mellitus without complications; Z85.51 Personal history of malignant neoplasm of bladder
CPT/HCPCS: 99282